=== PATIENT | female | born 2000 | race Hispanic/Latino ===

== ENCOUNTER 2024-06-01 06:05 | Emergency (ER) | payer OTHER ==
[2024-06-01 06:30] LABS: Bilirubin Negative (Negative); Blood, Urine Trace (Negative); Glucose, Urine (Dipstick) Negative (Negative); Ketone, Urine Negative (Negative); Leukocyte Negative (Negative); Nitrite Negative (Negative); Protein, Urine (Dipstick) Negative (Neg-Trace)
[2024-06-01 06:36] LABS: Bacteria/HPF 1+ HPF (None Seen); CAUTI Indications for Culture Pelvic or flank pain; Clarity Hazy (Clear); Squamous Epithelial 0-3 HPF (0-3); WBC/HPF 0-3 HPF (0-3)
[2024-06-01 06:37] LABS: Urine Culture Reflex No No
[2024-06-01] MEDS ORDERED: Pantoprazole DR 40 MG TAB ONE (06:45)
[2024-06-01] MEDS ORDERED: Lidocaine Viscous Sol 2% 15 ml UD Cup ONE (06:45)
[2024-06-01] MEDS ORDERED: Mag-Al Plus 1200/1200/120 MG (30 mL) UDCUP ONE (06:45)
== END 2024-06-01 08:00 | disposition home or self-care (01) ==
LOC: NAV ERS 06:05
DX: K21.9 Gastro-esophageal reflux disease without esophagitis (principal)
CPT/HCPCS: 81001; 93005; 99285